=== PATIENT | male | born 1950 ===

== ENCOUNTER 2017-01-27 14:55 | Inpatient (IN) | payer MEDICAID ==
[~2017-01-27] VITALS: Ht 172.7 cm; Wt 86.4 kg
--- NOTE | ~2017-01-27 | HP ---
ADMIT: 01/27/2017 RM/LOC: 529 [facility] MR#: [id number] 2620 [facility] [address] [place], [place] [address] SALLY RAMIREZ [address] [place] [address] History and Physical SEX: M AGE: 66 : 1950 DATE OF SERVICE: CHIEF COMPLAINT: 1. Fever. 2. Urinary retention with associated severe prostate gland enlargement. 3. Possible urinary tract infection. 4. Hematuria. HISTORY PRESENT ILLNESS: The patient is a pleasant 66-year-old, male, who has been seen by us and followed along for benign prostatic hypertrophy, urinary retention, failed voiding trial, has developed gross hematuria. He presented to the office today was just not feeling well. Fever in the office with 103.1. Unfortunately his catheter not been draining for about 24 hours and he did not tell anybody. I went ahead and removed the indwelling catheter. Performed a cystoscopy just to make sure that there was not any urethral trauma or any other worrisome findings. Visualization of the bladder lumen was very poor. Soliz catheter was replaced. I was able to irrigate the bladder and the urinary effluent was light pink without clots. We did do a prostate ultrasound demonstrating 130 to 140 g gland. The catheter was noted to be within the bladder lumen. The patient states that he is just not feeling well. He was seen with the assistance of his daughter-in- law who provides interpretive assistance. The patient states that otherwise he has had no nausea vomiting. There has been no lateralizing flank pain. Again the catheter had not been draining for about 24 hours. MEDICATIONS: At the present time include: 1. Aspirin 81 mg daily. 2. He did recently get a course of Omnicef 300 mg p.o. b.i.d. 3. Cholestyramine 4 g twice a day. 4. Hydrocortisone 25 mg rectally 2 times a day. 5. Synthroid 25 mcg once a day. 6. Cozaar 100 mg p.o. daily. 7. Prednisone 5 mg p.o. daily. 8. Flomax 0.4 mg p.o. daily. ALLERGIES: NO KNOWN DRUG ALLERGIES. PAST MEDICAL HISTORY: 1. Significant for history of anticoagulant use, which has been on hold. 2. DVT. 3. Elevated PSA. 4. Hypertension. 5. Lung cancer. 6. Thyroid disease. 7. New onset urinary retention. PAST SURGICAL HISTORY: Port placement. FAMILY HISTORY: Significant for hypertension in his father. ADMIT: 01/27/2017 RM/LOC: 529 [facility] MR#: [id number] [address] [address] ALMEIDA DAYSALLY [address] [place] [address] History and Physical SEX: M AGE: 66 : 1950 SOCIAL HISTORY: The patient is a former smoker. Does not use chewing tobacco. Denies alcohol use. REVIEW OF SYSTEMS: Aside from fever, denies any chest pain or shortness of breath. PHYSICAL EXAMINATION: GENERAL: The patient is alert, looks like he does not feel well. HEART: Regular. CHEST: Clear. VITAL SIGNS: Blood pressure is 122/64. ABDOMEN: Soft, nontender, nondistended. No suprapubic mass or tenderness. BACK: No costovertebral angle tenderness. GENITOURINARY: The patient's glans and shaft without plaques or lesions. Testes descended bilaterally without mass or tenderness. Indwelling Soliz catheter draining light pink urine. EXTREMITIES: No cyanosis, clubbing, or edema. ASSESSMENT: 1. Fever with poorly draining catheter. 2. Benign prostatic hypertrophy. 3. Urinary retention. 4. Severe prostate gland enlargement. PLAN: I have recommended we admit the patient for IV fluids, of course, administration of comfort medications to alleviate some of his bladder spasms associated with recent Soliz catheter placement. I have recommended broad- spectrum antibiotic coverage. Laboratory evaluation including CBC, BMP, and lactic acid. We will consult Dr. Bowser for management of medical issues. Joni Pruitt MD/ bobby JOB #: [id number] CC: Joni Pruitt, Attending Physician Joni Pruitt, Family Physician
[2017-01-31] MEDS ORDERED: COZAAR100 MG PO (19:42)
[2017-01-31] MEDS ORDERED: LOMOTIL 2.5-0.1 EACH PO (19:43)
[2017-01-31] MEDS ORDERED: QUESTRAN DPS4 GM PO (19:43)
[2017-01-31] MEDS ORDERED: ACIDOPHILUS-PE1 EAC3 PO (19:43)
[2017-01-31] MEDS ORDERED: SYNTHROID50 MCG PO (19:44)
[2017-01-31] MEDS ORDERED: IMODIUM DPS2 MG PO (19:44)
[2017-01-31] MEDS ORDERED: FEOSOL-DPS325 MG PO (19:44)
[2017-01-31] MEDS ORDERED: CIPRO DPS500 MG PO (19:45)
[2017-01-31] MEDS ORDERED: [UNRECOGNIZED DRUG - OTHER] PR (19:45)
[2017-01-31] MEDS ORDERED: TUCKS1 EACH TP (19:45)
[2017-01-31] MEDS ORDERED: NORCO 5-325 TA1 EACH PO (19:46)
[2017-01-31] MEDS ORDERED: DELTASONE DPS5 MG PO (19:46)
[2017-01-31] MEDS ORDERED: MYRBETRIQ50 MG PO (19:46)
[2017-01-31] MEDS ORDERED: COLACE-DPS100 MG PO (19:46)
--- NOTE | 2017-02-08 09:36 | CO ---
ADMIT: 01/27/2017 RM/LOC: 529 [facility] MR#: [id number] 26[address] [facility] [address] [place], [place] [address] SALLY RAMIREZ [address] [place] [address] Consultation SEX: M AGE: 66 : 1950 DATE OF CONSULTATION: 01/28/2017 ATTENDING PHYSICIAN: Joni Pruitt CONSULTING PHYSICIAN: Kye Su MD REASON FOR CONSULTATION: 1. Stage 4 lung cancer on immunotherapy. 2. Gross hematuria. 3. DVT, on anticoagulation with Eliquis. HISTORY AND PHYSICAL: Mr. Zimmer is a very well-known 66-year-old gentleman who speaks only Divehi. I used the research chief engineer from our floor who helps me to interpret, he is a Divehi. As per the patient, he had gross hematuria for couple days, he did not well. That is why he came to the ER and subsequently got admitted. His hemoglobin was severely down, it was around 7.2. He is getting 2 units of blood transfusion today. His hematuria has completely stopped now. His Eliquis is also on hold. He has an IVC filter because of his recent blood clot, DVT on his legs from traveling. The patient denies any shortness of breath, denies any nausea, denies any fever, denies any vomiting, denies any blood in the stool, denies any blood in the vomiting. He is getting blood transfusion now and I think it is okay to give him blood transfusion. He also had IVC filter placed on January 28, 2017, due to the fact that he has not been on anticoagulation and he has a recent history of blood clots, which is I think absolutely fine. PAST MEDICAL HISTORY: 1. History of stage 4 lung cancer, locally advanced on immunotherapy with Opdivo. 2. Lower extremities DVT on anticoagulation. ALLERGIES: NO KNOWN DRUG ALLERGIES. SOCIAL HISTORY: The patient was ex-smoker. Currently he does not smoke, does not drink. No IV or illicit drug use. FAMILY HISTORY: No history of any cancers in the family. History of high blood pressure in the family. MEDICATIONS: He is on: 1. Prednisone. 2. Tylenol. Please review the medication reconciliation form for complete. REVIEW OF SYSTEMS: The complete review of systems were negative except gross hematuria when he presented in the hospital, but the gross hematuria has stopped now after holding anticoagulation. PHYSICAL EXAMINATION: VITAL SIGNS: Temperature 99.4, pulse 107, respirations ADMIT: 01/27/2017 RM/LOC: 529 [facility] MR#: [id number] [address] [address] SALLY RAMIREZ [address] [place] [address] Consultation SEX: M AGE: 66 : 1950 16, blood pressure 110/77. HEENT: Normocephalic and atraumatic. LUNGS: Clear. HEART: S1 and S2 heard. Regular rate and rhythm. ABDOMEN: Soft, nontender, nondistended. Positive bowel sounds. EXTREMITIES: No edema. SKIN: No rashes. NEUROLOGY: Awake, alert, and oriented x3. No focal neurological deficit. No weakness in the extremities. EXTREMITIES: No swelling. LYMPHATICS: No abnormal lymph node palpated. LABORATORY DATA: WBC 10.7, hemoglobin 7.2, platelets 191, MCV 65.3. Normal creatinine and normal LFTs. IMPRESSION AND RECOMMENDATIONS: Mr. Zimmer is a 66-year-old gentleman from [place] was admitted due to gross hematuria on anticoagulation. Hematology/Oncology consulted for further management of anticoagulation. 1. Gross hematuria, likely from Eliquis. Eliquis on hold. Gross hematuria has resolved, but he is severely anemic with hemoglobin of 7.2 due to bleeding. He is receiving 2 units of blood today and we will continue to watch his CBC. 2. Anemia, likely from bleeding. He is getting transfusion. 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 He does not have iron deficiency. 3. Stage 4 lung cancer, advanced, un-resectable. He is getting immunotherapy. So far, he is handling very well. He did have severe colitis and diarrhea from immunotherapy, was on prednisone. He is still on prednisone. I will taper down the prednisone and eventually discontinue. I have given the tapering orders to the nurse. His diarrhea is better. He has not received immunotherapy for a while ADMIT: 01/27/2017 RM/LOC: 529 [facility] MR#: [id number] [address] [address] ZIMMER DAY SALLY [address] [place] [address] Consultation SEX: M AGE: 66 : 1950 because of his diarrhea and colitis. 4. Lower extremities deep venous thrombosis, recent one. Therefore, he was on anticoagulation, Eliquis twice a day. He did have gross hematuria, therefore is on hold. The patient has IVC filter placed today on January 28, 2017. Once we can re-start anticoagulation, we will in the future, discontinue IVC filter. If we cannot for some reason put him on anticoagulation, then we will keep IVC filter permanently. The patient knows the cons and pros of IVC filter as well as anticoagulation very well. I have answered all his questions and concerns. Thank for your consultations and opportunity in taking care of your patient. I will follow the patients with you. Kye Su MD/ bobby JOB #: [id number] CC: Joni Pruitt, Attending Physician Joni Pruitt, Family Physician
--- NOTE | 2017-02-12 17:13 | DS ---
ADMIT: 01/27/2017 RM/LOC: 529 [facility] MR#: [id number] 2620 [facility] [address] [place], [place] [address] SALLY RAMIREZ [address] [place] [address] Discharge Summary SEX: M AGE: 66 : 1950 ADMISSION DATE: 01/27/2017 DISCHARGE DATE: 01/30/2017 PRINCIPAL DIAGNOSES: 1. Urinary retention. 2. Gross hematuria. 3. Severe prostate gland enlargement secondary to benign prostatic hypertrophy. 4. Urinary tract infection with associated fever. PRINCIPAL PROCEDURES: None. SECONDARY DIAGNOSES: 1. Hypothyroidism. 2. Hypertension. 3. Current diagnosis of lung cancer. 4. Recent history of deep vein thrombosis .. SECONDARY PROCEDURES: IVC filter placement. BRIEF HISTORY: The patient is a pleasant 66-year-old, white male, who presented to our office initially with urinary retention, failed voiding trial. Then, with indwelling Soliz catheter and Eliquis therapy, developed significant gross hematuria, requiring multiple catheter irrigations. We did go ahead and hold the Eliquis. Unfortunately, the patient's urine just never did clear. He came to my office on the . He stated that his Soliz catheter had not been draining for approximately 24 hours. I did go ahead and briefly evaluated the patient at my office, he had a temperature of a 103.1. We did go ahead and do a cystoscopy, which demonstrated a very long obstructing prostatic urethra. Significant lateral lobe enlargement and elevation of bladder neck. I do suspect there was a median lobe component, but upon entering the bladder, the urine was quite cloudy and visualization was suboptimal. Given the fever, I did not pursue things aggressively. I simply removed the scope, placed a Soliz catheter, left this to gravity drainage. We did do a brief prostate ultrasound which ruled out any prostatic abscess. Estimated prostate size was between 135 and 150 g. At this point, the patient was referred to hospital for admission secondary to fever and suspicion of urinary tract infection and possible early sepsis. HOSPITAL COURSE: The patient is seen and admitted. At that time, labs demonstrated a mildly elevated white blood cell count. Serum creatinine was acceptable. Lactic acid was 1.6. We did go ahead and initiate broad-spectrum antibiotic therapy with Levaquin and Rocephin. I did consult Dr. Bowser for management of medical issues. Eliquis was placed on hold. We did undertake DVT prophylaxis on the right leg. The left leg was left alone. We did institute vigorous IV hydration with a liter of normal saline bolus, and then fluid at 150 mL an hour. The patient remained clinically stable. He improved quite dramatically. On hospital day #2, the patient was doing quite well. His fever was trending down. His white blood cell count was improving. Serum ADMIT: 01/27/2017 RM/LOC: 529 [facility] MR#: [id number] [address] [place] [id number] [address] [place] [address] Discharge Summary SEX: M AGE: 66 : 1950 creatinine was improving. He was feeling better. Urine output was excellent and clear. Dr. Bowser did feel that it was best to consider IVC filter placement. This request was made from [facility] and ultimately accomplished successfully during this hospitalization. The patient was continued on the Levaquin and will as well as Rocephin. On hospital day #3, the patient continued to do well. Labs were trending in the right direction. We did receive a urine culture demonstrating Pseudomonas with a good sensitivity pattern. We did stop his Rocephin as well as his Levaquin, and switched him to p.o. Cipro. The patient continued to feel well, was getting his strength back, and tolerating a good regular diet. I did discontinue his Flomax on this day. On hospital day #4, the patient was finally doing quite well. After transfusion of 2 units, his hematocrit had rebounded nicely. His tachycardia had resolved. The patient was ready for discharge. We had made arrangements to have the patient visit [facility] for consideration of open suprapubic prostatectomy given continued issues with urinary retention as well as severe prostate gland enlargement secondary to benign prostatic hypertrophy. DISCHARGE CONDITION: Good. DISCHARGE ACTIVITY: Per discharge order sheet. DISCHARGE MEDICATIONS: Will include: 1. Cipro 500 mg 1 p.o. b.i.d. for the next 14 days. 2. Myrbetriq 50 mg 1 p.o. daily, dispense #14. The patient will hold his Eliquis, stop his Flomax, and resume all other pre- admission medications. Soliz care and catheter teaching were accomplished. DISPOSITION: Patient will follow up on 02/03/2017 with [facility] physicians for consideration of open suprapubic prostatectomy. I will have the patient back to my office in approximately 2 weeks. If any issues should develop with catheter drainage, he is to call the office immediately, and he does understand this. Plan has been discussed with his [id number] who is fluent in Tunisian. Joni Pruitt MD/ bobby JOB #: [id number] CC: Joni Pruitt MD, Attending Physician Joni Pruitt MD, Family Physician MD Rickey Damon MD
--- NOTE | 2017-02-17 08:48 | CO ---
ADMIT: 01/27/2017 RM/LOC: 529 [facility] MR#: [id number] [address] [place] [id number] [place], [place] [address] SALLY RAMIREZ [address] [place] [address] Consultation SEX: M AGE: 66 : 1950 Correction: 02/06/2017 1056 djs ATTENDING PHYSICIAN: Joni Pruitt CONSULTING PHYSICIAN: Rickey Bowser MD CHIEF COMPLAINT: Bladder outlet obstruction with fevers. HISTORY OF PRESENT ILLNESS: Sally is a 66-year-old, male from [place] admitted by Dr. Pruitt in Urology with bladder outlet obstruction with recent catheter placement with obstruction over the last 24 hours with problems with hematuria and recent episodes of fever over the last 24 hours up to over 102 with generalized malaise and chills. He was subsequently evaluated by Urology, and they felt he needed admission for IV antibiotics and further evaluation and management. The patient at this time states the fevers and chills started last night. Denies any nausea, vomiting, or flank pain. PAST MEDICAL HISTORY: Includes lung cancer, currently followed by Oncology, newly diagnosed hypothyroidism, hyperlipidemia, benign essential hypertension, deep venous thrombosis of lower extremity diagnosed in November 2014 with previous anticoagulation therapy. MEDICATIONS: Include: 1. Aspirin 81 mg daily. 2. Omnicef 300 mg b.i.d. 3. Cholestyramine 4 g b.i.d. 4. Hydrocortisone 25 mg rectally b.i.d. 5. Synthroid 25 mcg daily. 6. Cozaar 100 mg daily. 7. Prednisone 5 mg daily. 8. Flomax 0.4 mg at bedtime. ALLERGIES: NONE KNOWN. SOCIAL HISTORY: A 66-year-old, male. He does not currently smoke or drink alcohol. He is from [place] and is new to [place] and was initially evaluated in my clinic around 6 months ago. FAMILY HISTORY: Remarkable for hypertension in his father. REVIEW OF SYSTEMS: Remarkable for fevers, chills, and bladder outlet obstruction. Remainder of review of systems negative. PHYSICAL EXAMINATION: VITAL SIGNS: Include temperature of 100.4, pulse 135, respiratory rate 24, and blood pressure 97/66. GENERAL APPEARANCE: A 66-year-old male, who is alert, oriented, appears moderately ill, in no acute distress. Lying in the hospital bed. ADMIT: 01/27/2017 RM/LOC: 529 [facility] MR#: [id number] [address] [address] SALLY RAMIREZ [address] [place] [address] Consultation SEX: M AGE: 66 : 1950 HEENT: Pupils reactive. Membranes are moist. Throat is unremarkable. NECK: Without nodes or masses. HEART: Regular with tachycardia. LUNGS: Clear. ABDOMEN: Soft, nontender, and benign. No CVA tenderness. Soliz catheter is in place with some mild hematuria. EXTREMITIES: No clubbing or cyanosis. He has trace edema in the right lower extremity. NEUROLOGIC: Grossly normal including light touch, strength, and DTRs. LABORATORY DATA: Labs include sodium 133, potassium 4.3, BUN of 12, creatinine 1.3 with glucose 106. INR is 1.07. White count of 12.3, hemoglobin 8.2, and platelet count of 172,000. Lactic acid is 1.6. UA shows hazy urine with 6 wbc's. ASSESSMENT: Bladder outlet obstruction with urinary retention and fevers suspected urinary tract infection, rule out sepsis, rule out pyelo. Other problems include: 1. Lung cancer. 2. Deep venous thrombosis with right lower extremity. 3. Current anticoagulants on hold. 4. Anemia likely secondary to chemo. 5. Hypothyroidism. 6. Benign essential hypertension. PLAN: We will have [facility] Radiology evaluate him for possible inferior vena cava filter given his right lower extremity deep venous thrombosis diagnosed 2 months ago with need to hold his anticoagulant due to his gross hematuria. Appropriate labs and cultures have been ordered, and we will do thyroid testing and confirm home med dosing. Followup labs in the morning were ordered. We will give him a fluid bolus, and I agree with his current antibiotic therapy. We will proceed with further evaluation and management based on course during hospitalization. Please see his hospital record for the details. Thank you for the consult regarding Sally Howell. Rickey Bowser MD/ bobby JOB #: [id number] CC: Joni Pruitt, Attending Physician Joni Pruitt, Family Physician Correction: 02/06/2017 1056 djs
== END 2017-01-30 16:24 | disposition home or self-care (01) | DRG 674 ==
LOC: 5MS 14:55
PROVIDERS: ADMIT Urology
PROC: 06H03DZ Insertion of Intraluminal Device into Inferior Vena Cava, Percutaneous Approach (ICD-10-PCS; principal; 2017-01-27)
PROC: 30233N1 Transfusion of Nonautologous Red Blood Cells into Peripheral Vein, Percutaneous Approach (ICD-10-PCS; 2017-01-28)
DX: N39.0 Urinary tract infection, site not specified (principal); I82.401 Acute embolism and thrombosis of unspecified deep veins of right lower extremity; C34.90 Malignant neoplasm of unspecified part of unspecified bronchus or lung; D64.81 Anemia due to antineoplastic chemotherapy; I10 Essential (primary) hypertension; B96.5 Pseudomonas (aeruginosa) (mallei) (pseudomallei) as the cause of diseases classified elsewhere; E03.9 Hypothyroidism, unspecified; N40.1 Benign prostatic hyperplasia with lower urinary tract symptoms; R31.0 Gross hematuria; T45.525A Adverse effect of antithrombotic drugs, initial encounter; R33.8 Other retention of urine; E78.5 Hyperlipidemia, unspecified; Z86.718 Personal history of other venous thrombosis and embolism; Z79.52 Long term (current) use of systemic steroids; Z79.82 Long term (current) use of aspirin; Z87.891 Personal history of nicotine dependence